=== PATIENT | female | born 1945 | race Caucasian/White ===

== ENCOUNTER 2019-01-14 14:52 | Emergency (ER) | payer MEDICARE, OTHER ==
[~2019-01-14] VITALS: Ht 157.5 cm; Wt 57.3 kg
[~2019-01-14 14:52] MED LIST: CHOL10002 PO; CYAN100019 PO; LACT1CAP55 PO; LEVO25TA2 PO; LIDOcaine 1% 30ml preserv. free vial ONE; MAGN500C16 PO; UBID100C16 PO
[2019-01-14 15:35] VITALS: BP 135/65
[2019-01-14] MEDS ORDERED: ibuprofen tablet 400 MG TABLET PO ONE (17:00)
[2019-01-14] MEDS ORDERED: TRAM50TA2 PO (17:40)
== END 2019-01-14 18:40 | disposition home or self-care (01) ==
LOC: ER 14:52
DX: S52.591A Other fractures of lower end of right radius, initial encounter for closed fracture (principal); S52.691A Other fracture of lower end of right ulna, initial encounter for closed fracture; M19.90 Unspecified osteoarthritis, unspecified site; Z98.890 Other specified postprocedural states; Z79.899 Other long term (current) drug therapy; W01.0XXA Fall on same level from slipping, tripping and stumbling without subsequent striking against object, initial encounter; Y93.89 Activity, other specified; Y92.89 Other specified places as the place of occurrence of the external cause; Y99.9 Unspecified external cause status
CPT/HCPCS: 25605; 73100; 73110; 99284; J2001

== ENCOUNTER 2019-01-29 11:41 | Outpatient (CLI) | payer MEDICARE, OTHER ==
[~2019-01-29 11:41] MED LIST changes: -LIDOcaine 1% 30ml preserv. free vial ONE
== END 2019-01-29 14:30 | disposition home or self-care (01) ==
LOC: ORTHO 11:41
PROVIDERS: ATTEND Orthopaedic Surgery
DX: S52.591D Other fractures of lower end of right radius, subsequent encounter for closed fracture with routine healing (principal); S52.691D Other fracture of lower end of right ulna, subsequent encounter for closed fracture with routine healing; M19.031 Primary osteoarthritis, right wrist; I10 Essential (primary) hypertension; X58.XXXD Exposure to other specified factors, subsequent encounter
CPT/HCPCS: 73110; A4590; G0463